=== PATIENT | female | born 1990 | race Caucasian/White ===

== ENCOUNTER 2016-05-06 22:33 | Emergency (ER) | payer OTHER ==
[2016-05-07] MEDS ORDERED: HYDROCODONE/ACETAMINOPHEN 5-325 MG 6 TAB/DSPK PO PRN (00:58)
--- NOTE | 2016-05-07 01:20 | ER Document Report ---
HPI - HPI Patient complains to provider of: right hand injury Pain Level: 5 Context: Patient is a 26-year-old female that comes emergency department for chief complaint of right hand injury, patient states her hands actually smashed in car door, she has tiny abrasions over the knuckles of the hand, her vaccinations are all up-to-date including tetanus. Patient denies any other injuries. - CARDIOVASCULAR Cardiovascular: REPORTS: Chest pain - REPRODUCTIVE Reproductive: DENIES: : - MUSCULOSKELETAL Musculoskeletal: REPORTS: Extremity pain - right hand, Swelling - right hand - DERM Skin Color: Erythema - NURSING COMMENTS Comment: Pt reports that she accidenlty slammed right hand in car door. Pt has large amt of swelling to right hand with minimal ROM. Cap refill < 3 seconds. Past Medical History - General Information source: Patient - Social History Smoking Status: Never Smoker Frequency of alcohol use: None Drug Abuse: None Lives with: Family Family History: Reviewed & Not Pertinent Patient has suicidal ideation: No Patient has homicidal ideation: No Renal/ Medical History: Denies: Hx Peritoneal Dialysis Past Surgical History: Reports: Hx Section - x2 - Immunizations Hx Diphtheria, Pertussis, Tetanus Vaccination: Yes Vertical Provider Document - CONSTITUTIONAL General Appearance: WD/WN, Mild Distress - Patient holding her right hand - INFECTION CONTROL TRAVEL OUTSIDE OF THE [place] IN LAST 30 DAYS: No - HEENT HEENT: Atraumatic, Normal ENT Exam, Normocephalic - NECK Neck: Normal Inspection - RESPIRATORY Respiratory: Breath Sounds Normal, No Respiratory Distress - CARDIOVASCULAR Cardiovascular: Regular Rate, Regular Rhythm - GI/ABDOMEN Gastrointestinal: Abdomen Soft, Abdomen Non-Tender - MUSCULOSKELETAL/EXTREMETIES Musculoskeletal/Extremeties: Tender - There is soft tissue swelling over the dorsal aspect and slightly over the palmar aspect of the right hand mainly concentrated over the MCP joints, there are small abrasions over the knuckles and over the index finger dorsally. No noted snuffbox tenderness, normal range of motion of the hand, normal capillary refill and sensation. Mild tenderness but no severe tenderness Course - Re-evaluation Re-evalutation: Patient's pain is significantly swollen, however there are no fractures on x- ray on my review or on radiology's. - Diagnostic Test Radiology reviewed: Image reviewed, Reports reviewed Discharge - Discharge Clinical Impression: Soft tissue swelling Hand injury Qualifiers: Encounter type: initial encounter Laterality: right Qualified Code(s): S69.91XA - Unspecified injury of right wrist, hand and finger(s), initial encounter Disposition: HOME, SELF-CARE Additional Instructions: No fracture is seen on x-ray imaging. Apply ice to the hand, keep the abrasions clean, dressed with antibiotic ointment. Elevate your hand when possible. Wear your Jayme wrap for compression additionally if desired. If you're hand becomes hot, increasingly swollen, or you develop a fever please return immediately. If symptoms of hand swelling and pain continue for several days please follow- up with the orthopedic referral. Return to the emergency department for any concerning or worsening symptoms. Referrals: YONNY ONEAL, [ACTIVE STAFF] - Follow up as needed
[2016-05-07 01:53] VITALS: BP 121/70
== END 2016-05-07 01:30 | disposition home or self-care (01) ==
LOC: ER 22:33
DX: S60.511A Abrasion of right hand, initial encounter (principal); S60.410A Abrasion of right index finger, initial encounter; M79.89 Other specified soft tissue disorders; W23.0XXA Caught, crushed, jammed, or pinched between moving objects, initial encounter
CPT/HCPCS: 99283

== ENCOUNTER 2017-01-24 13:01 | Emergency (ER) | payer OTHER ==
[2017-01-24] MEDS ORDERED: AZITHROMYCIN 250 MG TABLET PO ONE (14:11)
[2017-01-24] MEDS ORDERED: LIDOCAINE 1% INJ-PF (10 MG/ML) 30 ML SDV INJ ONE (14:11)
[2017-01-24] MEDS ORDERED: CEFTRIAXONE INJ 250 MG VIAL IM ONE (14:11)
[2017-01-24] MEDS ORDERED: METRONIDAZOLE 500 MG TABLET PO ONE (14:13)
--- NOTE | 2017-01-24 14:16 | ER Document Report ---
ED GI/ - General Chief Complaint: Vaginal Bleeding Stated Complaint: STD CHECK Time Seen by Provider: 01/24/17 14:04 Mode of Arrival: Ambulatory Information source: Patient Notes: 26 yo female presents to ed for vaginal discharge creamy in color. Patient states she already sent a urine down for the GC and chlamydia and refuses to have a wet mount or pelvic done. She refuses to have another urine done. She states she just wants these azithromycin Rocephin and Flagyl. She states she had unprotected sex with a kellie who told her that he tested positive for chlamydia and needs to be treated for this. She states she is allergic to erythromycin but she has had azithromycin with no adverse effects. She states she is allergic to amoxicillin but can take Rocephin. TRAVEL OUTSIDE OF THE [place] IN LAST 30 DAYS: No - HPI Patient complains to provider of: Vaginal discharge Onset: Other - 2 days Timing/Duration: Gradual Quality of pain: No pain Severity in ED: None Pain Level: Denies Sexual history: STD exposure Associated symptoms: Vaginal discharge Exacerbated by: Denies Relieved by: Denies Similar symptoms previously: Yes Recently seen / treated by doctor: No - Related Data Allergies/Adverse Reactions: amoxicillin [Amoxicillin] Allergy (Verified 01/24/17 13:10) erythromycin base [Erythromycin Base] Allergy (Verified 01/24/17 13:10) latex [Latex] Allergy (Verified 01/24/17 13:10) naproxen [Naproxen] Allergy (Verified 01/24/17 13:10) Penicillins Allergy (Verified 01/24/17 13:10) tramadol [Tramadol] Allergy (Verified 01/24/17 13:10) trazodone Allergy (Verified 01/24/17 13:10) Past Medical History - General Information source: Patient - Social History Smoking Status: Current Every Day Smoker Cigarette use (# per day): Yes - One third pack per day Chew tobacco use (# tins/day): No Smoking Education Provided: Yes - Less than 2 minutes Frequency of alcohol use: Social Drug Abuse: None Occupation: Patient Care Assistant Lives with: Alone - Her children Family History: Reviewed & Not Pertinent Patient has suicidal ideation: No Patient has homicidal ideation: No - Past Medical History Cardiac Medical History: Reports: None Pulmonary Medical History: Reports: None EENT Medical History: Reports: None Neurological Medical History: Reports: None Endocrine Medical History: Reports: None Renal/ Medical History: Reports: Hx Pelvic Inflammatory Disease GI Medical History: Reports: None Musculoskeltal Medical History: Reports Hx Musculoskeletal Deformity, Reports Hx Musculoskeletal Trauma Skin Medical History: Reports None Psychiatric Medical History: Reports: Other - Insomnia Traumatic Medical History: Reports: Hx Fractures Infectious Medical History: Reports: None Past Surgical History: Reports: Hx Section - x2 - Immunizations Hx Diphtheria, Pertussis, Tetanus Vaccination: Yes Review of Systems - Review of Systems Constitutional: No symptoms reported EENT: No symptoms reported Cardiovascular: No symptoms reported Respiratory: No symptoms reported Gastrointestinal: No symptoms reported Genitourinary: No symptoms reported Female Genitourinary: Vaginal discharge Musculoskeletal: No symptoms reported Skin: No symptoms reported Hematologic/Lymphatic: No symptoms reported Neurological/Psychological: No symptoms reported -: Yes All other systems reviewed and negative Physical Exam - Vital signs Vitals: Temp Pulse Resp BP Pulse Ox 99.0 F 82 16 119/66 99 01/24/17 13:11 01/24/17 13:11 01/24/17 13:11 01/24/17 13:11 01/24/17 13:11 Interpretation: Normal - General General appearance: Appears well, Alert - HEENT Head: Normocephalic, Atraumatic Eyes: Normal Pupils: PERRL Ears: Normal External canal: Normal Tympanic membrane: Normal Sinus: Normal Nasal: Normal Mouth/Lips: Normal Mucous membranes: Normal Pharynx: Normal Neck: Normal - Respiratory Respiratory status: No respiratory distress Chest status: Nontender Breath sounds: Normal Chest palpation: Normal - Cardiovascular Rhythm: Regular Heart sounds: Normal auscultation Murmur: No - Abdominal Inspection: Normal Distension: No distension Bowel sounds: Normal Tenderness: Nontender Organomegaly: No organomegaly - Genitourinary External exam: Other - Refused pelvic exam, refused pelvic swabs - Back Back: Normal, Nontender - Extremities General upper extremity: Normal inspection, Nontender, Normal color, Normal ROM , Normal temperature General lower extremity: Normal inspection, Nontender, Normal color, Normal ROM , Normal temperature, Normal weight bearing. No: Keven's sign - Neurological Neuro grossly intact: Yes Cognition: Normal Orientation: AAOx4 [place] Coma Scale Eye Opening: Spontaneous [place] Coma Scale Verbal: Oriented Mickey Coma Scale Motor: Obeys Commands [place] Coma Scale Total: 15 Speech: Normal Motor strength normal: LUE, RUE, LLE, RLE Sensory: Normal - Psychological Associated symptoms: Normal affect, Normal mood - Skin Skin Temperature: Warm Skin Moisture: Dry Skin Color: Normal Course - Re-evaluation Re-evalutation: 01/24/17 14:21 Patient refused pelvic exams or vaginal swabs. She states she just wants to be treated with the azithromycin, Flagyl, and Rocephin. She refused to send a urine for a urinalysis. States she needs to get out of here in time to get her kids off the bus. Explained to patient the side effects to the medication she is being prescribed and the need to follow-up for any further symptoms as she has refused a complete exam. - Vital Signs Vital signs: Temp Pulse Resp BP Pulse Ox 99.0 F 82 16 119/66 99 01/24/17 13:11 01/24/17 13:11 01/24/17 13:11 01/24/17 13:11 01/24/17 13:11 Discharge - Discharge Clinical Impression: Exposure to STD Condition: Stable Disposition: HOME, SELF-CARE Instructions: Family Physicians / Practices Additional Instructions: He was seen today for exposure to chlamydia and possible other STDs. CEPHALOSPORINS: An antibiotic of the cephalosporin class has been prescribed. This type of antibiotic covers a wide variety of infections, including those of the skin, lungs, middle ear, and urinary tract. This antibiotic is somewhat similar to the penicillin family. In rare cases , a person who is allergic to penicillin will also be allergic to this medication. If you have had a severe allergic reaction to penicillin, and have not taken this antibiotic since that time, notify your doctor. Antibiotics which cover many germs ("broad spectrum" antibiotics) are more likely to cause diarrhea or "yeast" infections. Women prone to vaginal yeast problems may suffer an attack after taking this antibiotic. In infants, oral thrush (white spots "stuck" on the cheek) or yeast diaper rash may result. See your doctor if these problems occur. Call the doctor at once if you develop hives, itching, shortness of breath , or lightheadedness. AZITHROMYCIN: Azithromycin (Zithromax) is a broad spectrum antibiotic in the same class as erythromycin. It can treat a variety of bacterial infections, but is most frequently used for respiratory infections. Azithromycin is extremely long-lasting. It accumulates in body tissues and continues to kill bacteria for many days. In order to improve absorption, Azithromycin should be taken at least one hour before or two hours after a meal. It does not have the same strong tendency to upset the stomach as erythromycin and is usually very well tolerated. Patients who have had a rash or other true allergic reactions to erythromycin should not take this medication. Call if you develop gastrointestinal distress, severe diarrhea, rash, hives, itching, or shortness of breath. METRONIDAZOLE: Metronidazole (Flagyl) has been prescribed. This medication is used to kill a type of bacteria called anaerobes, and protozoan parasites such as trichomonas and Giardia. Flagyl often causes a metallic taste in the mouth and mild nausea. Do not use alcohol in any form with Flagyl (including alcohol in medication elixirs). Flagyl interacts with alcohol to cause flushing, palpitations, headache, stomach cramps, and vomiting. Do not use Flagyl if you are taking Antabuse (disulfiram). Call the doctor at once if you develop rash, shortness of breath, itching, or lightheadedness. FOLLOW-UP CARE: If you have been referred to a physician for follow-up care, call the physician s office for an appointment as you were instructed or within the next two days. If you experience worsening or a significant change in your symptoms, notify the physician immediately or return to the Emergency Department at any time for re-evaluation. Forms: Return to Work
[2017-01-24 15:14] VITALS: BP 113/67
[2017-01-24 16:07] LABS: CHLAM PCR NOT DETECTED (NOT DETECT)
== END 2017-01-24 15:13 | disposition home or self-care (01) ==
LOC: ER 13:01
DX: Z20.2 Contact with and (suspected) exposure to infections with a predominantly sexual mode of transmission (principal); N89.8 Other specified noninflammatory disorders of vagina; Z71.6 Tobacco abuse counseling; F17.210 Nicotine dependence, cigarettes, uncomplicated; Z88.1 Allergy status to other antibiotic agents; Z88.0 Allergy status to penicillin; Z91.040 Latex allergy status; Z88.8 Allergy status to other drugs, medicaments and biological substances; Z88.5 Allergy status to narcotic agent
CPT/HCPCS: 99283; 96372; 87491; 87591; J3490; J0696

== ENCOUNTER 2019-04-22 14:45 | Emergency (ER) | payer OTHER ==
[2019-04-22 15:45] VITALS: BP 127/79
--- NOTE | 2019-04-22 16:00 | ER Document Report ---
ED GI/ - General Chief Complaint: Flank Pain Stated Complaint: STD CHECK Time Seen by Provider: 04/22/19 15:53 Primary Care Provider: ABIODUN ARTEAGA DO [Primary Care Provider] - Follow up as needed Mode of Arrival: Ambulatory Information source: Patient Notes: 29-year-old female presented to ED for right flank pain right abdominal pain and vaginal discharge. She states her cheated on her and she would like to be checked for STDs but she also would like her pain in her right flank area checked out. She states she does have a history of polycystic ovarian. She states she does have a vaginal discharge. She did go to the bathroom before coming into the pit area but she states she ready cleaned and has a clean urine. She states her pain to the right flank area is a 3. Patient is alert oriented respirations regular nonlabored speaking in full sentences. I have greeted and performed a rapid initial assessment of this patient. A comprehensive ED assessment and evaluation of the patient, analysis of test results and completion of medical decision making process will be conducted by an additional ED providers. TRAVEL OUTSIDE OF THE [place] IN LAST 30 DAYS: No - Related Data Allergies/Adverse Reactions: amoxicillin [Amoxicillin] Allergy (Verified 01/24/17 13:10) erythromycin base [Erythromycin Base] Allergy (Verified 01/24/17 13:10) latex [Latex] Allergy (Verified 01/24/17 13:10) naproxen [Naproxen] Allergy (Verified 01/24/17 13:10) Penicillins Allergy (Verified 01/24/17 13:10) tramadol [Tramadol] Allergy (Verified 01/24/17 13:10) trazodone Allergy (Verified 01/24/17 13:10) Past Medical History - Social History Family History: Reviewed & Not Pertinent Renal/ Medical History: Reports: Hx Pelvic Inflammatory Disease. Denies: Hx Peritoneal Dialysis Musculoskeletal Medical History: Reports Hx Musculoskeletal Deformity, Reports Hx Musculoskeletal Trauma Traumatic Medical History: Reports: Hx Fractures Past Surgical History: Reports: Hx Section - x2 - Immunizations Hx Diphtheria, Pertussis, Tetanus Vaccination: Yes Physical Exam - Vital signs Vitals: Temp Pulse Resp BP Pulse Ox 98.5 F 87 16 127/79 H 100 04/22/19 15:42 04/22/19 15:42 04/22/19 15:42 04/22/19 15:42 04/22/19 15:42 Course - Vital Signs Vital signs: Temp Pulse Resp BP Pulse Ox 98.5 F 87 16 127/79 H 100 04/22/19 15:42 04/22/19 15:42 04/22/19 15:42 04/22/19 15:42 04/22/19 15:42 Discharge - Discharge Referrals: ABIODUN ARTEAGA, [Primary Care Provider] - Follow up as needed
--- NOTE | 2019-04-22 16:00 | ER Document Report ---
ED Medical Screen (RME) - General Chief Complaint: Flank Pain Stated Complaint: STD CHECK Time Seen by Provider: 04/22/19 15:53 Primary Care Provider: ABIODUN ARTEAGA DO [Primary Care Provider] - Follow up as needed Mode of Arrival: Ambulatory Notes: 29-year-old female presented to ED for right flank pain right abdominal pain and vaginal discharge. She states her cheated on her and she would like to be checked for STDs but she also would like her pain in her right flank area checked out. She states she does have a history of polycystic ovarian. She states she does have a vaginal discharge. She did go to the bathroom before coming into the pit area but she states she ready cleaned and has a clean urine. She states her pain to the right flank area is a 3. Patient is alert oriented respirations regular nonlabored speaking in full sentences. I have greeted and performed a rapid initial assessment of this patient. A comprehensive ED assessment and evaluation of the patient, analysis of test results and completion of medical decision making process will be conducted by an additional ED providers. TRAVEL OUTSIDE OF THE [place] IN LAST 30 DAYS: No - Related Data Allergies/Adverse Reactions: amoxicillin [Amoxicillin] Allergy (Verified 01/24/17 13:10) erythromycin base [Erythromycin Base] Allergy (Verified 01/24/17 13:10) latex [Latex] Allergy (Verified 01/24/17 13:10) naproxen [Naproxen] Allergy (Verified 01/24/17 13:10) Penicillins Allergy (Verified 01/24/17 13:10) tramadol [Tramadol] Allergy (Verified 01/24/17 13:10) trazodone Allergy (Verified 01/24/17 13:10) Past Medical History Renal/ Medical History: Reports: Hx Pelvic Inflammatory Disease. Denies: Hx Peritoneal Dialysis Musculoskeltal Medical History: Reports Hx Musculoskeletal Deformity, Reports Hx Musculoskeletal Trauma Traumatic Medical History: Reports: Hx Fractures Past Surgical History: Reports: Hx Section - x2 - Immunizations Hx Diphtheria, Pertussis, Tetanus Vaccination: Yes Physical Exam - Vital signs Vitals: Temp Pulse Resp BP Pulse Ox 98.5 F 87 16 127/79 H 100 04/22/19 15:42 04/22/19 15:42 04/22/19 15:42 04/22/19 15:42 04/22/19 15:42 Course - Vital Signs Vital signs: Temp Pulse Resp BP Pulse Ox 98.5 F 87 16 127/79 H 100 04/22/19 15:42 04/22/19 15:42 04/22/19 15:42 04/22/19 15:42 04/22/19 15:42 Doctor's Discharge - Discharge Referrals: ABIODUN ARTEAGA, [Primary Care Provider] - Follow up as needed
[2019-04-22 16:58] LABS: ABSOLUTE BASOPHILS # (AUTO) 0.1 10^3/uL (0.0-0.2); ABSOLUTE EOSINOPHILS # (AUTO) 0.2 10^3/uL (0.0-0.6); ABSOLUTE LYMPHOCYTES (AUTO) 2.1 10^3/uL (0.5-4.7); ABSOLUTE MONOCYTES (AUTO) 0.5 10^3/uL (0.1-1.4); ABSOLUTE NEUT (AUTO) 6.4 10^3/uL (1.7-8.2); BASOPHILS % (AUTO) 0.8 % (0-2); EOSINOPHILS % (AUTO) 1.9 % (0-6); HEMATOCRIT 38.8 % (36.0-47.0); HEMOGLOBIN 13.1 g/dL (12.0-15.5); LYMPHOCYTES % (AUTO) 22.4 % (13-45); MEAN CORPUSCULAR HEMOGLOBIN 27.9 pg (27.0-33.4); MEAN CORPUSCULAR HGB CONC 33.8 g/dL (32.0-36.0); MEAN CORPUSCULAR VOLUME 83 fl (80-97); MONOCYTES % (AUTO) 5.6 % (3-13); PLATELET COUNT 301 10^3/uL (150-450); RED CELL DISTRIBUTION WIDTH 14.5 % (11.5-14.0); SEGMENTED NEUTROPHILS % (AUTO) 69.3 % (42-78); TOTAL CELLS COUNTED % (AUTO) 100 %; WHITE BLOOD COUNT 9.2 10^3/uL (4.0-10.5)
[2019-04-22 17:10] LABS: APPEARANCE,URINE CLEAR; BILIRUBIN,URINE NEGATIVE (NEGATIVE); COLOR,URINE STRAW; GLUCOSE, URINE NEGATIVE (NEGATIVE); KETONES,URINE NEGATIVE (NEGATIVE); PROTEIN,URINE NEGATIVE (NEGATIVE); URINE SPECIFIC GRAVITY 1.002; UROBILINOGEN,URINE NEGATIVE mg/dL (<2.0)
--- NOTE | 2019-04-22 18:55 | RADIOLOGY REPORT (SQ) ---
EXAM DESCRIPTION: U/S RETROPERITON (RENAL/AORTA) COMPLETED DATE/TIME: 04/22/2019 6:46 pm REASON FOR STUDY: Right flank and pelvic pain COMPARISON: None. TECHNIQUE: Dynamic and static grayscale images acquired of the kidneys and bladder and recorded on P ACS. Additional selected color Doppler and spectral images recorded. LIMITATIONS: None. FINDINGS: RIGHT KIDNEY: Normal size, 11.5 cm. Normal echogenicity. No solid or suspicious masses. No hydronephrosis. No calcifications. LEFT KIDNEY: Normal size, 10.7 cm. Normal echogenicity. No solid or suspicious masses. No hydronephr osis. No calcifications. BLADDER: No masses. Bilateral ureteral jets are seen. OTHER FINDINGS: No other significant finding. IMPRESSION: NORMAL RENAL AND BLADDER ULTRASOUND. TECHNICAL DOCUMENTATION: JOB ID: [id number] [employer]- All Rights Reserved Reading location - IP/workstation name: [email or web address]
--- NOTE | 2019-04-22 18:57 | RADIOLOGY REPORT (SQ) ---
EXAM DESCRIPTION: U/S NON-OB PELVIS W/O DOP COMPLETED DATE/TIME: 04/22/2019 6:46 pm REASON FOR STUDY: Right flank and pelvic pain LMP 04/14/2019 COMPARISON: None. TECHNIQUE: Dynamic and static grayscale images acquired of the pelvis via transabdominal approach an d recorded on PACS. Additional selected color Doppler and spectral images recorded. LIMITATIONS: None. FINDINGS: UTERUS: Contour normal. No mass. ENDOMETRIAL STRIPE: No focal or generalized thickening. No masses. CERVIX: 2.4 cm. No nabothian cyst. RIGHT OVARY AND DOPPLER: Normal size. No worrisome masses. Normal arterial vascular flow without evid ence for torsion. LEFT OVARY AND DOPPLER: Normal size. No worrisome masses. Normal arterial vascular flow without evide nce for torsion. FREE FLUID: None noted. OTHER: No other significant finding. MEASUREMENTS: UTERUS: 7.7 x 3.8 x 5.8 cm. ENDOMETRIAL STRIPE: 4 mm. RIGHT OVARY: 2.5 x 1.9 x 2.5 cm. LEFT OVARY: 2.7 x 1.9 x 2.7 cm. IMPRESSION: NORMAL PELVIC ULTRASOUND BY TRANSABDOMINAL TECHNIQUE. TECHNICAL DOCUMENTATION: JOB ID: [id number] [employer]- All Rights Reserved Rev-08/30 Reading location - IP/workstation name: [email or web address]
--- NOTE | 2019-04-22 20:36 | ER Document Report ---
ED GI/ - General Chief Complaint: Flank Pain Stated Complaint: STD CHECK Time Seen by Provider: 04/22/19 15:53 Primary Care Provider: [facility] [Provider Group] - Follow up as needed Mode of Arrival: Ambulatory Notes: Patient is a 29-year-old female who presents to the emergency department with a chief complaint of possible STD exposure. Patient reports her recently cheated on her and she would like to be checked for STDs. Patient reports she is not currently have any vaginal discharge. Patient reports her last menstrual cycle was April 14. Patient reports she does have a history of PCOS and is having some lower abdominal pain that feels like her normal PCOS but she is unsure and would like to be checked for this. Patient also reports having some right flank pain. Patient reports that both the lower abdominal pain and the right flank pain are chronic in nature and intermittently flareup. TRAVEL OUTSIDE OF THE [place] IN LAST 30 DAYS: No - Related Data Allergies/Adverse Reactions: amoxicillin [Amoxicillin] Allergy (Verified 01/24/17 13:10) erythromycin base [Erythromycin Base] Allergy (Verified 01/24/17 13:10) latex [Latex] Allergy (Verified 01/24/17 13:10) naproxen [Naproxen] Allergy (Verified 01/24/17 13:10) Penicillins Allergy (Verified 01/24/17 13:10) tramadol [Tramadol] Allergy (Verified 01/24/17 13:10) trazodone Allergy (Verified 01/24/17 13:10) morphine Adverse Reaction (Verified 04/22/19 16:00) Vomiting Home Medications: Ambien. Omprazolone Past Medical History - General Information source: Patient - Social History Smoking Status: Current Every Day Smoker Lives with: Spouse/Significant other Family History: Reviewed & Not Pertinent Patient has suicidal ideation: No Patient has homicidal ideation: No - Past Medical History Cardiac Medical History: Reports: None Pulmonary Medical History: Reports: None EENT Medical History: Reports: None Neurological Medical History: Reports: None Endocrine Medical History: Reports: None Renal/ Medical History: Reports: Hx Pelvic Inflammatory Disease. Denies: Hx Peritoneal Dialysis Malignancy Medical History: Reports: None GI Medical History: Reports: None Musculoskeletal Medical History: Reports Hx Musculoskeletal Deformity, Reports Hx Musculoskeletal Trauma Skin Medical History: Reports None Psychiatric Medical History: Reports: None Traumatic Medical History: Reports: Hx Fractures Infectious Medical History: Reports: None Past Surgical History: Reports: Hx Section - x2 - Immunizations Hx Diphtheria, Pertussis, Tetanus Vaccination: Yes Review of Systems - Review of Systems Constitutional: No symptoms reported EENT: No symptoms reported Cardiovascular: No symptoms reported Respiratory: No symptoms reported Gastrointestinal: See HPI Genitourinary: No symptoms reported Female Genitourinary: See HPI Musculoskeletal: No symptoms reported Skin: No symptoms reported Hematologic/Lymphatic: No symptoms reported Neurological/Psychological: No symptoms reported Physical Exam - Vital signs Vitals: Temp Pulse Resp BP Pulse Ox 98.5 F 87 16 127/79 H 100 04/22/19 15:42 04/22/19 15:42 04/22/19 15:42 04/22/19 15:42 04/22/19 15:42 Interpretation: Normal - Notes Notes: GENERAL: Well-appearing, well-nourished and in no acute distress. HEAD: Atraumatic, normocephalic. EYES: Pupils equal round and reactive to light, extraocular movements intact, sclera anicteric, conjunctiva are normal. ENT: Nares patent, oropharynx clear without exudates. Moist mucous membranes. NECK: Normal range of motion, supple without lymphadenopathy or JVD. LUNGS: Breath sounds clear to auscultation bilaterally and equal. No wheezes rales or rhonchi. HEART: Regular rate and rhythm without murmurs, rubs or gallops. ABDOMEN: Soft, nontender, normoactive bowel sounds. No guarding, no rebound. No masses appreciated. BACK: No cervical, thoracic, lumbar midline tenderness. No saddle anesthesia, n ormal distal neurovascular exam. No CVA tenderness. GENITOURINARY: Deferred. EXTREMITIES: Normal range of motion, no pitting or edema. No clubbing or cyanosis. NEUROLOGICAL: Cranial nerves II through XII grossly intact. Normal speech, normal gait. PSYCH: Normal mood, normal affect. SKIN: Warm, Dry, normal turgor, no rashes or lesions noted. Patient does have some erythema noted underneath the right breast. Course - Re-evaluation Re-evalutation: 04/22/19 20:34 Patient has politely declined pelvic examination as she states she does not have any vaginal discharge. I did inform her without the pelvic examination I could not rule out bacterial vaginosis, trichomonas or yeast. Patient verbalizes understanding. Patient would like to prophylactically get treated for gonorrhea and chlamydia. Her cultures are pending. Patient to follow-up with BOAT OFFICER in regards to her PCOS. Patient's physical exam is reassuring and unremarkable. Patient did not have any significant abdominal pain upon examination. 04/22/19 20:55 Patient reports that she has had azithromycin for chlamydia before and is also received Rocephin without allergic reaction. I did verify this as she does have multiple antibiotic allergies documented in her chart. - Vital Signs Vital signs: Temp Pulse Resp BP Pulse Ox 98.5 F 87 16 127/79 H 100 04/22/19 15:42 04/22/19 15:42 04/22/19 15:42 04/22/19 15:42 04/22/19 15:42 - Laboratory Result Diagrams: 04/22/19 16:24 04/22/19 16:24 Laboratory results interpreted by me: 04/22/19 04/22/19 04/22/19 15:53 16:24 16:24 RDW 14.5 H Direct Bilirubin 0.5 H Leukocyte Esterase Rfl TRACE H 04/22/19 20:59 Patient does not have significant leukocytosis, anemia, alteration electrolytes or kidney function. Patient's urinalysis unremarkable. Patient is not . Laboratory 04/22/19 04/22/19 04/22/19 15:53 16:24 16:24 WBC 9.2 RBC 4.70 Hgb 13.1 Hct 38.8 MCV 83 MCH 27.9 MCHC 33.8 RDW 14.5 H Plt Count 301 Lymph % (Auto) 22.4 [place] % (Auto) 5.6 Eos % (Auto) 1.9 Baso % (Auto) 0.8 Absolute Neuts (auto) 6.4 Absolute Lymphs (auto) 2.1 Absolute Monos (auto) 0.5 Absolute Eos (auto) 0.2 Absolute Basos (auto) 0.1 Seg Neutrophils % 69.3 Sodium Potassium Chloride Carbon Dioxide Anion Gap BUN Creatinine Est GFR ( Amer) Est GFR (MDRD) Non-Af Glucose Calcium Total Bilirubin Direct Bilirubin Neonat Total Bilirubin Neonat Direct Bilirubin Neonat Indirect Bili AST ALT Alkaline Phosphatase Total Protein Albumin Lipase 33.1 Serum HCG, Qual Urine Color STRAW Urine Appearance CLEAR Urine pH 7.0 Ur Specific [place] 1.002 Urine Protein NEGATIVE Urine Glucose (UA) NEGATIVE Urine Ketones NEGATIVE Urine Blood NEGATIVE Urine Nitrite (Reflex) NEGATIVE Urine Bilirubin NEGATIVE Urine Urobilinogen NEGATIVE Leukocyte Esterase Rfl TRACE H Urine RBC (Auto) 0 Urine WBC (Reflex) 1 Squamous Epi Cells Auto <1 Urine Ascorbic Acid NEGATIVE 04/22/19 04/22/19 16:24 16:24 WBC RBC Hgb Hct MCV MCH MCHC RDW Plt Count Lymph % (Auto) [place] % (Auto) Eos % (Auto) Baso % (Auto) Absolute Neuts (auto) Absolute Lymphs (auto) Absolute Monos (auto) Absolute Eos (auto) Absolute Basos (auto) Seg Neutrophils % Sodium 139.4 Potassium 4.1 Chloride 103 Carbon Dioxide 25 Anion Gap 11 BUN 7 Creatinine 0.66 Est GFR ( Amer) > 60 Est GFR (MDRD) Non-Af > 60 Glucose 100 Calcium 10.0 Total Bilirubin 0.7 Direct Bilirubin 0.5 H Neonat Total Bilirubin Not Reportable Neonat Direct Bilirubin Not Reportable Neonat Indirect Bili Not Reportable AST 32 ALT 25 Alkaline Phosphatase 71 Total Protein 7.9 Albumin 4.4 Lipase Serum HCG, Qual NEGATIVE Urine Color Urine Appearance Urine pH Ur Specific [place] Urine Protein Urine Glucose (UA) Urine Ketones Urine Blood Urine Nitrite (Reflex) Urine Bilirubin Urine Urobilinogen Leukocyte Esterase Rfl Urine RBC (Auto) Urine WBC (Reflex) Squamous Epi Cells Auto Urine Ascorbic Acid - Diagnostic Test Radiology reviewed: Reports reviewed Radiology results interpreted by me: 04/22/19 20:59 Pelvis Ultrasound 04/22/19 16:01 IMPRESSION: NORMAL PELVIC ULTRASOUND BY TRANSABDOMINAL TECHNIQUE. Renal Ultrasound 04/22/19 16:01 IMPRESSION: NORMAL RENAL AND BLADDER ULTRASOUND. Discharge - Discharge Clinical Impression: PCOS (polycystic ovarian syndrome), STD exposure, Intertrigo Abdominal pain Qualifiers: Abdominal location: lower abdomen, unspecified Qualified Code(s): R10.30 - Lower abdominal pain, unspecified Condition: Stable Disposition: HOME, SELF-CARE Additional Instructions: Today was seen in the emergency department for abdominal pain and possible STD exposure. We have prophylactically treated you for gonorrhea and chlamydia. Your cultures are pending. Will be contacted if these are positive. We did obtain basic lab work, and ultrasound of the pelvis and an ultrasound of your kidneys which were all negative. Please take the medications as prescribed. Do not drive while taking the [place] if needed for severe pain as this can cause drowsiness. This is a narcotic. Also incorporate 800 mg ibuprofen. You have politely declined receiving a pelvic examination, this could provide us with information if you were to have bacterial vaginosis, yeast or trichomonas. Please follow-up with an BOAT OFFICER. Also appears that he may have a developing heat rash or yeast infection underneath the right breast. Please keep this area as dry as possible. You can use an [id number] antifungal such as nystatin. Avoid scented perfumes or lotions and powders around this area. Please return to the emergency department if you develop any worsening abdominal pain, fever or any new or worsening symptoms. Abdominal Pain There are many causes of abdominal pain. Pain can mean a serious problem requiring surgery (such as appendicitis). It can also be an innocent problem ehsan t goes away on its own (such as a viral infection). Often, time must pass to determine the cause of pain. The physician does not feel that hospitalization is necessary, at present. Things may change within the next 24 hours. Call the doctor or come back for re- examination if any problems occur, such as: (1) Pain that becomes more severe, steady, or becomes concentrated in one specific area. Also, pain that is more severe with movement or coughing. (2) Vomiting that persists or becomes more frequent. (3) Blood in the vomitus, urine, or bowel movements. Blood in the stool may have a tarry or black appearance. (4) Shaking chills or fever greater than 100 degrees F. (5) The abdomen becomes more distended or swollen. (6) Bowel movements cease. (7) Failure to improve as expected. Prescriptions: Ibuprofen [Motrin 800 mg Tablet] 800 mg PO Q8H PRN #30 tab PRN Reason: Referrals: [facility] [Provider Group] - Follow up as needed
[2019-04-22 20:47] LABS: ALBUMIN 4.4 g/dL (3.5-5.0); ALKALINE PHOSPHATASE 71 U/L (38-126); ANION GAP 11 (5-19); ASPARTATE AMINO TRANSFERASE 32 U/L (14-36); BILIRUBIN,DIRECT 0.5 mg/dL (0.0-0.4); BILIRUBIN,TOTAL 0.7 mg/dL (0.2-1.3); BLOOD UREA NITROGEN 7 mg/dL (7-20); CARBON DIOXIDE 25 mmol/L (22-30); CHLORIDE 103 mmol/L (98-107); GLUCOSE 100 mg/dL (75-110); POTASSIUM 4.1 mmol/L (3.6-5.0); TOTAL PROTEIN 7.9 g/dL (6.3-8.2)
[2019-04-22] MEDS ORDERED: CEFTRIAXONE INJ 250 MG VIAL IM ONE (20:55)
[2019-04-22] MEDS ORDERED: AZITHROMYCIN 250 MG TABLET PO ONE (20:55)
[2019-04-22] MEDS ORDERED: LIDOCAINE 1% INJ-PF (10 MG/ML) 30 ML SDV INJ ONE (20:55)
[2019-04-22] MEDS ORDERED: HYDROCODONE/ACETAMINOPHEN 5-325 MG (6 TAB/ER DISP) PO PRN (20:56)
== END 2019-04-22 21:35 | disposition home or self-care (01) ==
LOC: ER 14:45
DX: E28.2 Polycystic ovarian syndrome (principal); L30.4 Erythema intertrigo; R10.30 Lower abdominal pain, unspecified; Z20.2 Contact with and (suspected) exposure to infections with a predominantly sexual mode of transmission; G89.29 Other chronic pain; F17.200 Nicotine dependence, unspecified, uncomplicated
CPT/HCPCS: 99284; 96372; 36415; 87086; 83690; 84703; 85025; 87088; 80053; 81001; 87186; 76770; 76856; J3490; J0696

== ENCOUNTER 2019-06-13 20:58 | Emergency (ER) | payer OTHER ==
--- NOTE | 2019-06-13 21:22 | ER Document Report ---
ED Medical Screen (RME) - General Chief Complaint: Leg Pain Stated Complaint: LEFT LEG PAIN Time Seen by Provider: 06/13/19 21:18 TRAVEL OUTSIDE OF THE [place] IN LAST 30 DAYS: No - HPI Notes: 06/13/19 21:21 Patient is a 29-year-old female with history of anxiety and depression who presents complaining of left posterior upper leg pain over the past week and a half. Patient states that she felt a small knot to the area, but she has not noticed any redness. Patient states that she has mild pain on occasion that area. Pain does not radiate. She does have a family history of DVT in her father, but does not know if there is a reason that he developed it. + smoker. Denies any prolonged immobilization, distance travel, recent surgery/trauma, personal cancer history, hormone use, or previous DVT/PE. Denies INIGUEZ, fever, CP, SOB, neck pain, URI, n/v/d, Abd pain, dysuria, back pain, or rash. I have treated and performed a rapid initial assessment of this patient. A comprehensive ED assessment and evaluation of the patient, analysis of test results and completion of medical decision making process will be conducted by additional ED providers. PHYSICAL EXAMINATION: GENERAL: Well-appearing, well-nourished and in no acute distress. A&Ox4. Answers questions appropriately. Extremities: No cyanosis, clubbing, or edema b/l. Keven negative bilaterally. No lower extremity asymmetry. NEUROLOGICAL: Normal speech, normal gait. PSYCH: Normal mood, normal affect. - Related Data Allergies/Adverse Reactions: amoxicillin [Amoxicillin] Allergy (Verified 01/24/17 13:10) erythromycin base [Erythromycin Base] Allergy (Verified 01/24/17 13:10) latex [Latex] Allergy (Verified 01/24/17 13:10) naproxen [Naproxen] Allergy (Verified 01/24/17 13:10) Penicillins Allergy (Verified 01/24/17 13:10) tramadol [Tramadol] Allergy (Verified 01/24/17 13:10) trazodone Allergy (Verified 01/24/17 13:10) morphine Adverse Reaction (Verified 04/22/19 16:00) Vomiting Past Medical History Renal/ Medical History: Reports: Hx Pelvic Inflammatory Disease. Denies: Hx Peritoneal Dialysis Musculoskeltal Medical History: Reports Hx Musculoskeletal Deformity, Reports Hx Musculoskeletal Trauma Traumatic Medical History: Reports: Hx Fractures Past Surgical History: Reports: Hx Section - x2 - Immunizations Hx Diphtheria, Pertussis, Tetanus Vaccination: Yes Physical Exam - Vital signs Vitals: Temp Pulse Resp BP Pulse Ox 98.0 F 98 16 143/78 H 99 06/13/19 21:05 06/13/19 21:05 06/13/19 21:05 06/13/19 21:05 06/13/19 21:05 Course - Vital Signs Vital signs: Temp Pulse Resp BP Pulse Ox 98.0 F 98 16 143/78 H 99 06/13/19 21:05 06/13/19 21:05 06/13/19 21:05 06/13/19 21:05 06/13/19 21:05
--- NOTE | 2019-06-14 01:22 | ER Document Report ---
HPI - HPI Patient complains to provider of: lump to leg Time Seen by Provider: 06/14/19 01:00 Onset: Other - 4 month Pain Level: 1 Context: Patient presents complaining of a knot in the posterior aspect of her left leg. Patient states area is mildly tender. Patient states the lesion has been there since February 2019. Patient denies any previous history of DVT or PE. Patient was concerned that she may have a clot and wanted to have testing to evaluate this finding. Patient states that she was told that the test cannot be performed as the plastic process technician is not in the hospital. Patient states she does not want to wait until morning to have the test performed as she needs to go to a [employer]. Patient denies any chest pain or dyspnea. Patient denies any fever. Patient denies any swelling to the leg. Associated Symptoms: denies: Fever Exacerbated by: Denies Relieved by: Denies Similar symptoms previously: No Recently seen / treated by doctor: No - ROS ROS below otherwise negative: Yes Systems Reviewed and Negative: Yes All other systems reviewed and negative - CARDIOVASCULAR Cardiovascular: DENIES: Chest pain - RESPIRATORY Respiratory: DENIES: Trouble Breathing, Coughing - REPRODUCTIVE Reproductive: DENIES: : - MUSCULOSKELETAL Musculoskeletal: REPORTS: Extremity pain - lump to leg - DERM Skin Color: Normal Skin Problems: None Past Medical History - General Information source: Patient - Social History Smoking Status: Current Every Day Smoker Chew tobacco use (# tins/day): No Frequency of alcohol use: None Drug Abuse: None Occupation: none Lives with: Family Family History: Reviewed & Not Pertinent Patient has suicidal ideation: No Patient has homicidal ideation: No Renal/ Medical History: Reports: Hx Pelvic Inflammatory Disease. Denies: Hx Peritoneal Dialysis Musculoskeletal Medical History: Reports Hx Musculoskeletal Deformity, Reports Hx Musculoskeletal Trauma Psychiatric Medical History: Reports: Hx Anxiety, Hx Depression Traumatic Medical History: Reports: Hx Fractures Past Surgical History: Reports: Hx Section - x2 - Immunizations Hx Diphtheria, Pertussis, Tetanus Vaccination: Yes Vertical Provider Document - CONSTITUTIONAL Agree With Documented VS: Yes Exam Limitations: No Limitations General Appearance: WD/WN, No Apparent Distress - INFECTION CONTROL TRAVEL OUTSIDE OF THE [place] IN LAST 30 DAYS: No - HEENT HEENT: Atraumatic, Normocephalic - NECK Neck: Normal Inspection, Supple - RESPIRATORY Respiratory: Breath Sounds Normal, No Respiratory Distress, Chest Non-Tender - CARDIOVASCULAR Cardiovascular: Regular Rate, Regular Rhythm. negative: Tachycardia - BACK Back: Normal Inspection - MUSCULOSKELETAL/EXTREMETIES Musculoskeletal/Extremeties: MASOUD, FROM Notes: Patient with a 1 cm palpable, mobile well-circumscribed lesion to the medial aspect of the right popliteal area, no overlying erythema, no calor. - NEURO Level of Consciousness: Awake, Alert, Appropriate Motor/Sensory: No Motor Deficit - DERM Integumentary: Warm, Dry, No Rash Course - Re-evaluation Re-evalutation: 06/14/19 01:20 Patient presents with nodular lesion to the popliteal area. Patient denies any change in the symptoms tonight but just wanted to know if it was a blood clot. Explained to patient that symptoms were not consistent with a DVT but that we could perform the Doppler test if she was insistent. Patient does not want to wait till the morning to have the test performed as she was to go to a concert. Discussed worsening signs or symptoms that patient should return immediately for. - Vital Signs Vital signs: Temp Pulse Resp BP Pulse Ox 98.0 F 98 16 143/78 H 99 06/13/19 21:05 06/13/19 21:05 06/13/19 21:05 06/13/19 21:05 06/13/19 21:05 Discharge - Discharge Clinical Impression: Subcutaneous nodule of right lower leg Condition: Stable Disposition: HOME, SELF-CARE Instructions: Growth or Mass, Pending Workup ([facility]) Additional Instructions: Return immediately for any new or worsening symptoms Followup with your primary care provider, call tomorrow to make a followup appointment Referrals: [facility] [Provider Group] - Follow up as needed
[2019-06-14 01:37] VITALS: BP 133/64
== END 2019-06-14 01:37 | disposition home or self-care (01) ==
LOC: ER 20:58
DX: R22.42 Localized swelling, mass and lump, left lower limb (principal); F17.200 Nicotine dependence, unspecified, uncomplicated
CPT/HCPCS: 99283

== ENCOUNTER 2019-11-14 18:51 | Emergency (ER) | payer SELFPAY ==
--- NOTE | 2019-11-14 19:21 | ER Document Report ---
ED Medical Screen (RME) - General Chief Complaint: Abscess Stated Complaint: ABSCESS Time Seen by Provider: 11/14/19 19:20 Notes: HPI: 29-year-old female presenting for evaluation of tender swollen area to the right axillary region for 1 week. Has been using warm compresses. PHYSICAL EXAMINATION: There is a reddened raised fluctuant region that is tender to palpation in the right axillary I have greeted and performed a rapid initial assessment of this patient. A comprehensive ED assessment and evaluation of the patient, analysis of test results and completion of medical decision making process will be conducted by an additional ED providers. TRAVEL OUTSIDE OF THE [place] IN LAST 30 DAYS: No - Related Data Allergies/Adverse Reactions: amoxicillin [Amoxicillin] Allergy (Verified 01/24/17 13:10) erythromycin base [Erythromycin Base] Allergy (Verified 01/24/17 13:10) latex [Latex] Allergy (Verified 01/24/17 13:10) naproxen [Naproxen] Allergy (Verified 01/24/17 13:10) Penicillins Allergy (Verified 01/24/17 13:10) tramadol [Tramadol] Allergy (Verified 01/24/17 13:10) trazodone Allergy (Verified 01/24/17 13:10) morphine Adverse Reaction (Verified 04/22/19 16:00) Vomiting Past Medical History Renal/ Medical History: Reports: Hx Pelvic Inflammatory Disease. Denies: Hx Peritoneal Dialysis Musculoskeltal Medical History: Reports Hx Musculoskeletal Deformity, Reports Hx Musculoskeletal Trauma Psychiatric Medical History: Reports: Hx Anxiety, Hx Depression Traumatic Medical History: Reports: Hx Fractures Past Surgical History: Reports: Hx Section - x2 - Immunizations Hx Diphtheria, Pertussis, Tetanus Vaccination: Yes Physical Exam - Vital signs Vitals: Temp Pulse Resp BP Pulse Ox 98.3 F 90 18 119/79 99 11/14/19 18:56 11/14/19 18:56 11/14/19 18:56 11/14/19 18:56 11/14/19 18:56 Course - Vital Signs Vital signs: Temp Pulse Resp BP Pulse Ox 98.3 F 90 18 119/79 99 11/14/19 18:56 11/14/19 18:56 11/14/19 18:56 11/14/19 18:56 11/14/19 18:56
[2019-11-14] MEDS ORDERED: SULFAMETHOXAZOLE/TRIMETHOPRIM 800-160 MG TABLET PO ONE (23:10)
[2019-11-14] MEDS ORDERED: ONDANSETRON 4 MG TAB.RAPDIS PO ONE (23:10)
--- NOTE | 2019-11-14 23:11 | ER Document Report ---
HPI - HPI Time Seen by Provider: 11/14/19 19:20 Pain Level: 3 Notes: Otherwise healthy 29-year-old female patient presents the emergency department concern for tender swollen area to the right axillary region. She states that is been there for 1 week. She states she thought it was an ingrown hair so she has been putting warm compresses to the area. She denies any fever or chills. She has never had an abscess before. - ROS Systems Reviewed and Negative: Yes All other systems reviewed and negative - CONSTITUTIONAL Constitutional: DENIES: Fever, Chills - REPRODUCTIVE Reproductive: DENIES: : - DERM Notes: Abscess to right axillary area Past Medical History - General Information source: Patient - Social History Smoking Status: Current Every Day Smoker Chew tobacco use (# tins/day): No Frequency of alcohol use: Occasional Drug Abuse: Marijuana Family History: Reviewed & Not Pertinent Patient has homicidal ideation: No Renal/ Medical History: Reports: Hx Pelvic Inflammatory Disease. Denies: Hx Peritoneal Dialysis Musculoskeletal Medical History: Reports Hx Musculoskeletal Deformity, Reports Hx Musculoskeletal Trauma Psychiatric Medical History: Reports: Hx Anxiety, Hx Depression Traumatic Medical History: Reports: Hx Fractures Past Surgical History: Reports: Hx Section - x2 - Immunizations Hx Diphtheria, Pertussis, Tetanus Vaccination: Yes Vertical Provider Document - CONSTITUTIONAL Notes: PHYSICAL EXAMINATION: GENERAL: Well-appearing, well-nourished and in no acute distress. HEAD: Atraumatic, normocephalic. EYES: Pupils equal round extraocular movements intact, conjunctiva are normal. ENT: Nares patent NECK: Normal range of motion LUNGS: No respiratory distress Musculoskeletal: Normal range of motion NEUROLOGICAL: Normal speech, normal gait. PSYCH: Normal mood, normal affect. SKIN: Multiple tender erythematous area with induration and fluctuance noted to right axilla. - INFECTION CONTROL TRAVEL OUTSIDE OF THE [place] IN LAST 30 DAYS: No Course - Re-evaluation Re-evalutation: 11/15/19 00:31 Abscess was incised and drained x2 areas. Packing was placed to both areas. Moderate amount of purulent drainage obtained. Patient will be started on Bactrim and she has been instructed to return within 48 hours for packing removal. - Vital Signs Vital signs: Temp Pulse Resp BP Pulse Ox 98.3 F 90 18 119/79 99 11/14/19 19:19 11/14/19 18:56 11/14/19 18:56 11/14/19 18:56 11/14/19 18:56 Procedures - Incision and Drainage Left axillary #1 Type: Multiple Anesthetic type: 1% Lidocaine Blade size: 11 I&D procedure: Betadine prep applied Incision Method: Incision made by scalpel Discharge - Discharge Clinical Impression: Abscess Condition: Stable Disposition: HOME, SELF-CARE Instructions: Abscess ([facility]), Post Incision and Drainage, Trimethoprim-Sulfa ([facility]) Additional Instructions: You were seen for an abscess that required drainage. Please clean this area with soap and water twice daily and apply a topical antibiotic such as neosporin. Dress the area after each cleaning. Please return for packing removal sometime in the next 48 hours. Please return if you develop fever, vomiting, the pain at the site worsens, you notice spreading redness from the area, or you have any other symptoms that are concerning to you. Prescriptions: Sulfamethoxazole/Trimethoprim [Bactrim Ds Tablet] 1 tab PO BID #14 tablet
[2019-11-15] MEDS ORDERED: HYDROCODONE/ACETAMINOPHEN 5-325 MG (6 TAB/ER DISP) PO PRN (00:11)
[2019-11-15 00:38] VITALS: BP 130/84
== END 2019-11-15 00:41 | disposition home or self-care (01) ==
LOC: ER 18:51
DX: L02.412 Cutaneous abscess of left axilla (principal); F17.200 Nicotine dependence, unspecified, uncomplicated
CPT/HCPCS: 99283; 10061; S0119

== ENCOUNTER 2019-11-16 19:07 | Emergency (ER) | payer SELFPAY ==
[2019-11-16 20:12] VITALS: BP 99/76
--- NOTE | 2019-11-16 20:13 | ER Document Report ---
HPI - HPI Time Seen by Provider: 11/16/19 20:11 Pain Level: 3 Notes: HPI: 29-year-old female presenting for recheck of an abscess to the right axilla. Patient had the area incised and drained 2 days ago. She is taking her oral antibiotics she is changing the dressing daily. Per the records 2 areas were opened with packing placed. Patient states she was told to come back to have the packing removed. She denies fevers, states the area does feel much better PHYSICAL EXAMINATION: There are 2 wounds in the right axilla with packing present. I removed the dressing there is purulent material on the dressing. I pulled the packing was unable to express any further purulent discharge and redressed the wound area and gave patient wound instructions. I have greeted and performed a rapid initial assessment of this patient. A comprehensive ED assessment and evaluation of the patient, analysis of test results and completion of medical decision making process will be conducted by an additional ED providers. - CONSTITUTIONAL Constitutional: DENIES: Fever, Chills - REPRODUCTIVE LMP: 11/11/19 Reproductive: DENIES: : Past Medical History - Social History Smoking Status: Current Every Day Smoker Chew tobacco use (# tins/day): No Frequency of alcohol use: Social Drug Abuse: None Family History: Reviewed & Not Pertinent Patient has homicidal ideation: No Renal/ Medical History: Reports: Hx Pelvic Inflammatory Disease. Denies: Hx Peritoneal Dialysis Musculoskeletal Medical History: Reports Hx Musculoskeletal Deformity, Reports Hx Musculoskeletal Trauma Psychiatric Medical History: Reports: Hx Anxiety, Hx Depression Traumatic Medical History: Reports: Hx Fractures Past Surgical History: Reports: Hx Section - x2 - Immunizations Hx Diphtheria, Pertussis, Tetanus Vaccination: Yes Vertical Provider Document - INFECTION CONTROL TRAVEL OUTSIDE OF THE [place] IN LAST 30 DAYS: No Discharge - Discharge Clinical Impression: Abscess re-check Condition: Stable Disposition: HOME, SELF-CARE Instructions: Abscess ([facility]) Additional Instructions: Continue warm compresses as much as possible to encourage drainage from the wound areas. Finish your antibiotics. You may clean the area as much as you like at home. You may shower. Return for any worsening swelling
== END 2019-11-16 20:12 | disposition home or self-care (01) ==
LOC: ER 19:07
DX: L02.411 Cutaneous abscess of right axilla (principal); Z48.01 Encounter for change or removal of surgical wound dressing; F17.200 Nicotine dependence, unspecified, uncomplicated
CPT/HCPCS: 99282